=== PATIENT | male | born 1980 | race African-American/Black ===

== ENCOUNTER 2021-02-21 10:25 | Emergency (ER) | payer OTHER ==
[~2021-02-21] VITALS: Ht 170.2 cm; Wt 90.7 kg
[2021-02-21 11:00] VITALS: BP 125/75
== END 2021-02-21 12:49 | disposition home or self-care (01) ==
LOC: ER 10:25
DX: I10 Essential (primary) hypertension (principal); J45.909 Unspecified asthma, uncomplicated; E78.5 Hyperlipidemia, unspecified; Z76.0 Encounter for issue of repeat prescription